=== PATIENT | male | born 1985 | race Caucasian/White ===

== ENCOUNTER 2017-08-05 10:47 | Emergency (ER) | payer OTHER, BC ==
[~2017-08-05 10:47] MED LIST: BACTRIM DS 8001 TA1 PO; IBU-8800 MG PO; KEFLEX500 MG PO; TRAMADOL HCL50 MG PO
== END 2017-08-05 13:10 | disposition home or self-care (01) ==
LOC: ED 10:47
DX: S91.114A Laceration without foreign body of right lesser toe(s) without damage to nail, initial encounter (principal); S80.812A Abrasion, left lower leg, initial encounter; Z79.899 Other long term (current) drug therapy; V49.59XA Passenger injured in collision with other motor vehicles in traffic accident, initial encounter; Y93.89 Activity, other specified; Y92.413 State road as the place of occurrence of the external cause; Y99.9 Unspecified external cause status

== ENCOUNTER → 2019-11-12 | Outpatient (CLI) | payer SELFPAY | END | disposition home or self-care (01) | LOC: COVID19 03:12 | DX: Z03.818 Encounter for observation for suspected exposure to other biological agents ruled out (principal) ==

== ENCOUNTER 2020-12-18 20:17 | Emergency (ER) | payer SELFPAY ==
[~2020-12-18] VITALS: Ht 187.9 cm; Wt 72.6 kg
[2020-12-18 21:10] LABS: BASO % 0.5 % (0.0-1.0); EOS # 0.5 10*3/uL (0.0-0.4); EOS % 6.1 % (1.0-4.0); HEMATOCRIT 48.1 % (42.0-52.0); LYMPH # 1.9 10*3/uL (1.3-4.4); LYMPH % 25.6 % (27.0-41.0); MEAN CELL VOLUME 90.1 fl (80.0-94.0); MEAN CORPUSCULAR HGB CONC 33.3 g/dl (33.0-37.0); MEAN PLATELET VOLUME 9.7 fl (9.6-12.3); MONO # 0.6 10*3/uL (0.1-1.0); MONO % 7.8 % (3.0-9.0); NEUT # 4.4 10*3/uL (2.3-7.9); NEUT % 59.7 % (47.0-73.0); PLATELET COUNT AUTOMATED 247 10*3/uL (130-400); RED BLOOD COUNT 5.34 10*6/uL (4.50-5.90); RED CELL DISTRI WIDTH 12.5 % (0-14.5); WHITE BLOOD COUNT 7.4 10*3/uL (4.8-10.8)
[2020-12-18 21:32] LABS: ALBUMIN 4.1 gm/dl (3.1-4.5); ALKALINE PHOSPHATASE 82 U/L (45-117); BUN 14 mg/dl (7-24); CHLORIDE 105 mmol/L (98-107); CREATININE 1.11 mg/dL (0.70-1.30); LIPASE 127 U/L (73-393); POTASSIUM 4.5 mmol/L (3.5-5.1); SGOT/AST 15 IU/L (3-35); SGPT/ALT 26 U/L (12-78); SODIUM 140 mmol/L (136-145)
== END 2020-12-18 23:58 | disposition home or self-care (01) ==
LOC: ED 20:17
PROVIDERS: Internal Medicine
DX: B34.9 Viral infection, unspecified (principal); Z20.822 Contact with and (suspected) exposure to COVID-19; R42 Dizziness and giddiness

== ENCOUNTER 2022-05-16 16:28 | Emergency (ER) | payer OTHER ==
[~2022-05-16] VITALS: Ht 187.9 cm; Wt 72.6 kg
[2022-05-16] MEDS ORDERED: AMOX-CLAV 875-1 EACH PO (19:01)
== END 2022-05-16 19:14 | disposition home or self-care (01) ==
LOC: ED 16:28
DX: S62.662A Nondisplaced fracture of distal phalanx of right middle finger, initial encounter for closed fracture (principal); S61.312A Laceration without foreign body of right middle finger with damage to nail, initial encounter; W20.8XXA Other cause of strike by thrown, projected or falling object, initial encounter; Y93.89 Activity, other specified; Y92.89 Other specified places as the place of occurrence of the external cause; Y99.8 Other external cause status

== ENCOUNTER 2022-11-11 13:32 | Emergency (ER) | payer BC ==
[~2022-11-11] VITALS: Wt 74.8 kg
[~2022-11-11 13:32] MED LIST changes: +AMOX-CLAV 875-1 EACH PO
[2022-11-11 14:03] LABS: BASO % 0.5 % (0.0-1.0); EOS % 0.5 % (1.0-4.0); HEMATOCRIT 42.1 % (42.0-52.0); LYMPH % 23.9 % (27.0-41.0); MEAN CELL VOLUME 85.1 fl (80.0-94.0); MEAN CORPUSCULAR HGB 29.9 pg (27.0-31.0); MEAN CORPUSCULAR HGB CONC 35.2 g/dl (33.0-37.0); MEAN PLATELET VOLUME 8.9 fl (9.6-12.3); MONO # 0.5 10*3/uL (0.1-1.0); MONO % 11.4 % (3.0-9.0); NEUT # 2.6 10*3/uL (2.3-7.9); NEUT % 63.5 % (47.0-73.0); PLATELET COUNT AUTOMATED 233 10*3/uL (130-400); RED BLOOD COUNT 4.95 10*6/uL (4.50-5.90); WHITE BLOOD COUNT 4.1 10*3/uL (4.8-10.8)
[2022-11-11 14:14] LABS: ACT PARTIAL THROMBO TIME 26.6 SECONDS (20.0-32.1)
[2022-11-11 14:25] LABS: ALKALINE PHOSPHATASE 58 U/L (46-116); BUN 14 mg/dl (9-23); CHLORIDE 102 mmol/L (98-107); LIPASE 56 U/L (12-53); POTASSIUM 3.8 mmol/L (3.4-5.1); SGPT/ALT 13 U/L (10-49); TOTAL PROTEIN 7.5 gm/dL (6.0-8.0)
[2022-11-11] MEDS ORDERED: PROTONIX40 MG PO (17:28)
== END 2022-11-11 17:32 | disposition home or self-care (01) ==
LOC: ED 13:32
PROVIDERS: Emergency Medicine
DX: K29.00 Acute gastritis without bleeding (principal); R07.89 Other chest pain; R51.9 Headache, unspecified; R06.02 Shortness of breath; Z79.2 Long term (current) use of antibiotics

== ENCOUNTER → 2022-12-09 | Day surgery (SDC) | payer BC ==
[~2022-12-09] VITALS: Ht 182.8 cm; Wt 71.2 kg
[~2022-12-09] MED LIST changes: +BP PO; +PROTONIX40 MG PO
[2022-12-09 08:03] VITALS: BP 123/84
[2022-12-09 08:14] VITALS: BP 113/80
[2022-12-09 08:20] VITALS: BP 131/94
[2022-12-09 08:27] VITALS: BP 122/83
== END ==
LOC: SDC 12-05 10:15
PROVIDERS: ATTEND Surgery
DX: R10.9 Unspecified abdominal pain (principal); K29.50 Unspecified chronic gastritis without bleeding; I10 Essential (primary) hypertension; R12 Heartburn; K21.9 Gastro-esophageal reflux disease without esophagitis; Z87.891 Personal history of nicotine dependence; Z98.890 Other specified postprocedural states; Z79.899 Other long term (current) drug therapy

== ENCOUNTER → 2023-10-23 | Outpatient (CLI) | payer OTHER ==
[~2023-10-23] MED LIST changes: +DEPAKOTE ER500 MG PO; +DICLOFENAC SOD50 MG PO; +PROPRANOLOL HC160 MG PO; +Technetium Tc 99M Tetrofosmi 0.23 MG KIT IJ SCH
== END | disposition home or self-care (01) ==
LOC: CARD 10-08 00:47
PROVIDERS: ATTEND Internal Medicine
DX: R07.9 Chest pain, unspecified (principal); R55 Syncope and collapse; I10 Essential (primary) hypertension